=== PATIENT | male | born 1995 | race Caucasian/White ===

== ENCOUNTER 2019-03-15 15:46 | Emergency (ER) | payer SELFPAY ==
--- NOTE | 2019-03-15 16:07 | ED ---
Lower Extremity - HPI Summary HPI Summary: This patient is a 23 year old M presenting to ED with a chief complaint of left leg since three nights ago. Patient reports he sat with his legs crossed a three nights ago. When he got up, his legs had fallen asleep, so he had to hold on something to regain balance. He regained sensation in his right leg, but when he woke up the next morning his left leg still felt weird/asleep. That day , patient walked normally and worked both jobs all days until 3AM. After waking up the next morning, his left leg pain had gotten much worse and he was unable to stand up. Patient reports the pain shoots down his leg too his foot. He is able to rotate and flex his foot but he reports that doing so causes his left calf to have pain. He also reports the foot feels tingly. Patient reports he has had to limp while walking because of the pain. The patient rates the pain 9/ 10 in severity. Symptoms aggravated by flexing foot and touching the calf. Symptoms alleviated by nothing. Patient has not taken any medications today. Patient denies fever. - History of Current Complaint Chief Complaint: EDExtremityLower Stated Complaint: LEFT LEG INJURY PER PT Time Seen by Provider: 03/15/19 15:56 Hx Obtained From: Patient Onset of Pain: Days - 2 days ago Onset/Duration: Worse Since - 2 days ago Severity Initially: Moderate Severity Currently: Severe Pain Intensity: 9 Pain Scale Used: 0-10 Numeric Timing: Constant, Lasting Days - Since 2 days ago Location: Is Discrete @ - Left calf and foot Associated Signs And Symptoms: Negative: Fever Aggravating Factor(s): Other - Flexing foot, touching calf Alleviating Factor(s): Nothing Able to Bear Weight: Yes - Allergies/Home Medications Allergies/Adverse Reactions: Allergies Allergy/AdvReac Type Severity Reaction Status Date / Time sulfamethoxazole Allergy Unknown Verified 03/15/19 15:51 [From Bactrim] Reaction Details trimethoprim [From Bactrim] Allergy Unknown Verified 03/15/19 15:51 Reaction Details Home Medications: Home Medications NK [No Home Medications Reported] 03/15/19 [History Confirmed 03/15/19] PMH/Surg Hx/FS Hx/Imm Hx Endocrine/Hematology History: Denies: Hx Anticoagulant Therapy, Hx Blood Disorders, Hx Diabetes Respiratory History: Reports: Hx Asthma Psychiatric History: Reports: Hx Attention Deficit Hyperactivity Disorder, Hx Depression, Hx of Violent Episodes Against Others, Hx Substance Abuse - heroine Denies: Hx Eating Disorder - Surgical History Surgery Procedure, Year, and Place: Denies - Immunization History Date of Tetanus Vaccine: states < 10 years but unsure Infectious Disease History: No Infectious Disease History: Denies: Hx Human Immunodeficiency Virus (HIV), Hx of Known/Suspected MRSA, Traveled Outside the [place] in Last 30 Days - Family History Known Family History: Negative: Cardiac Disease, Hypertension, Diabetes - Social History Alcohol Use: None Hx Substance Use: Yes Substance Use Type: Reports: Heroin Substance Use Comment - Amount & Last Used: yesterday Hx Tobacco Use: Yes Smoking Status (MU): Heavy Every Day Tobacco Smoker Amount Used/How Often: 1.5 PPD Review of Systems Negative: Fever Musculoskeletal: Other - Right leg pain/numbness/tingly All Other Systems Reviewed And Are Negative: Yes Physical Exam - Summary Physical Exam Summary: Appearance: The patient is well-nourished in no acute distress and in no acute pain. Skin: The skin is warm and dry, and skin color reflects adequate perfusion. HEENT: The head is normocephalic and atraumatic. The pupils are equal and reactive. The conjunctivae are clear and without drainage. Nares are patent and without drainage. Mouth reveals moist mucous membranes, and the throat is without erythema and exudate. The external ears are intact. The ear canals are patent and without drainage. The tympanic membranes are intact. Neck: The neck is supple with full range of motion and non-tender. There are no carotid bruits. There is no neck vein distension. Respiratory: Chest is non-tender. Lungs are clear to auscultation and breath sounds are symmetrical and equal. Cardiovascular: Heart is regular rate and rhythm. There is no murmur or rub auscultated. There is no peripheral edema and pulses are symmetrical and equal. Abdomen: The abdomen is soft and non-tender. There are normal bowel sounds heard in all four quadrants and there is no organomegaly palpated. Musculoskeletal: Tenderness to the left calf. Neurological: Patient is alert and oriented to person, place and time. The patient has symmetrical motor strength in all four extremities. Cranial nerves are grossly intact. Deep tendon reflexes are symmetrical and equal in all four extremities. Psychiatric: The patient has an appropriate affect and does not exhibit any anxiety or depression. Triage Information Reviewed: Yes Vital Signs On Initial Exam: Initial Vitals Temp Pulse Resp BP Pulse Ox 98.8 F 71 19 110/71 100 03/15/19 15:47 03/15/19 15:47 03/15/19 15:47 03/15/19 15:47 03/15/19 15:47 Vital Signs Reviewed: Yes Procedures - Sedation Patient Received Moderate/Deep Sedation with Procedure: No Diagnostics - Vital Signs Vital Signs Temp Pulse Resp BP Pulse Ox 03/15/19 15:47 98.8 F 71 19 110/71 100 - Laboratory Lab Statement: Any lab studies that have been ordered have been reviewed, and results considered in the medical decision making process. Re-Evaluation - Re-Evaluation First Eval Re-Evaluation Time: 17:09 Comment: Discussed results with patient. Educated patient on compartment syndrome and creatine kinase result to rule-out compartment syndrome and rhabdo. Patient will be discharged home with dx of leg pain. Patient understands and agrees with this plan. Lower Extremity Course/Dx - Course Course Of Treatment: Mr. Bentley has a lot of pain in his left calf. It is tender. It is not firm and there is no sign of distal neurovascular or motor compromise. Creatinine kinase is normal. I think his muscle is probably sore and inflamed but I do not see any sign of compartment syndrome and has been 3 days since the insult. I recommended RICE and return if worsening, follow-up if not improving. - Diagnoses Provider Diagnoses: Leg pain Discharge ED - Sign-Out/Discharge Documenting (check all that apply): Patient Departure - Discharge - Discharge Plan Condition: Stable Disposition: HOME Patient Education Materials: Leg Pain (ED) Forms: *Work Release Referrals: Dada Carrillo MD [Primary Care Provider] - Additional Instructions: Please treat with rest, ice, and elevation. Please follow-up with your primary care physician in 2-3 days. PLEASE RETURN TO THE ER FOR WORSENING OR CHANGING SYMPTOMS. It was a pleasure taking care of you today. - Billing Disposition and Condition Condition: STABLE Disposition: Home - Attestation Statements Document Initiated by Scribe: Yes Documenting Scribe: Clifford Humphries Provider For Whom Scribe is Documenting (Include Credential): Yogesh Deluca MD Scribe Attestation: I, Clifford Humphries, scribed for Yogesh Deluca MD on 03/15/19 at 1810. Scribe Documentation Reviewed: Yes Provider Attestation: The documentation as recorded by the scribe, Clifford Humphries accurately reflects the service I personally performed and the decisions made by me, Yogesh Deluca MD Status of Scribe Document: Viewed
[2019-03-15 17:33] VITALS: BP 94/63
== END 2019-03-15 17:32 | disposition home or self-care (01) ==
LOC: ED 15:46
DX: M79.605 Pain in left leg (principal); J45.909 Unspecified asthma, uncomplicated; F90.9 Attention-deficit hyperactivity disorder, unspecified type; F32.9 Major depressive disorder, single episode, unspecified; F17.200 Nicotine dependence, unspecified, uncomplicated; Z88.1 Allergy status to other antibiotic agents; Z88.2 Allergy status to sulfonamides
CPT/HCPCS: 36415; 82550; 99282